=== PATIENT | female | born 1980 | race Caucasian/White ===

== ENCOUNTER 2024-07-19 16:01 | Emergency (ER) | payer BC, OTHER, SELFPAY ==
--- NOTE | ~2024-07-19 | XR_ITS ---
EXAMINATION: XR finger 1st LT min 2V DATE: 07/19/2024 16:38 INDICATION: Left thumb injury and pain. TECHNIQUE: 3 views of left thumb were obtained. COMPARISON: None. FINDINGS: Alignment is normal. No fracture. There is severe osteoarthritis of first carpometacarpal j oint and mild osteoarthritis of first metacarpophalangeal joint and first interphalangeal joint. IMPRESSION: 1. Polyarticular osteoarthritis. Reviewed, dictated and finalized at location A.
[2024-07-19 16:12] VITALS: BP 123/74; PULSE 88; RESP 18; TEMP 36.6; O2SAT 100
--- NOTE | 2024-07-19 16:41 | ED.UPPEXIN ---
HPI - Extremity Injury (Upper) General Chief Complaint: Extremity Injury, Upper Stated Complaint: left thumb/hand injury Source: patient Mode of arrival: ambulatory Limitations: no limitations History of Present Illness HPI narrative: 43-year-old female presented for complaint of left thumb pain after injury 2 days ago. She states she had the dog leash wrapped around the hand when she was pulled forward Rich tugged on the thumb. She currently reports some swelling to the palm area of the thumb, and pain with certain movements. Denies numbness, tingling, weakness, deformity or bruising. [id number]. Wearing a bandaid on the left thumb after cutting the thumb in a separate incident. Related Data Home Medications Medication Instructions Recorded Confirmed No Home Medications 07/19/24 07/19/24 Allergies Allergy/AdvReac Type Severity Reaction Status Date / Time levofloxacin [From Levaquin] AdvReac Other Verified 07/19/24 16:39 Review of Systems Review of Systems: CONSTITUTIONAL: Denies body aches, fever, chills CARDIOVASCULAR: Denies chest pain, palpitations, or edema. RESPIRATORY: Denies cough or dyspnea. SKIN: Denies rash, itching, or wounds. MUSCULOSKELETAL: Reports left thumb pain NEUROLOGIC: Denies headache, numbness, tingling, or weakness. All systems reviewed & are unremarkable except as noted in HPI and below PMFSH Past Medical History Medical History (Updated 07/19/24 @ 16:55 by Maris Montanez APRN) Abdominal hernia Anxiety Borderline personality disorder Dissociative identity disorder Surgical History Surgical History (Updated 07/19/24 @ 16:55 by Maris Montanez APRN) H/O gastric bypass H/O: hysterectomy Hx of cholecystectomy Comments At time of signature, I have reviewed and agree with nursing past medical, surgical, social and family history unless otherwise noted. Please see nursing chart for further information. There is no relevant family history pertinent to the presenting complaint Exam Narrative: GENERAL: Well-appearing CHEST: Speaks in full sentences. No respiratory distress. HEART: Regular rate and rhythm. Normal and equal peripheral pulses. EXTREMITIES: Left hand has normal strength and sensation, normal range of motion, but endorses pain with movement at thumb base. Tender with palpation to the palmar aspect of the left thumb.Mild swelling to palmar aspect of 1st metacarpal. no ecchymosis, No open wounds, or obvious deformity; alignment normal, pulse palpable and equal bilaterally, skin warm, dry, pink. Capillary refill less than 3 seconds. SKIN: Warm, dry NEURO: Alert and oriented x3. PSYCH: Normal mood and affect Course Course Emergency Course: Patient is aware of diagnosis, understands and agrees to treatment plan. Anticipatory guidance given. Patient agrees to follow-up as directed and is aware of reasons to seek care at the emergency department. Portions of this record may have been created with voice recognition software Level of Care: Express Care Visit Vital Signs Vital signs: Vital Signs Temperature 97.9 F 07/19/24 16:12 Pulse Rate 88 07/19/24 16:12 Respiratory Rate 18 07/19/24 16:12 Blood Pressure 123/74 07/19/24 16:12 Pulse Oximetry 100 07/19/24 16:12 Oxygen Delivery Room Air 07/19/24 16:12 Temperature 97.9 F 07/19/24 16:12 Pulse Rate 88 07/19/24 16:12 Respiratory Rate 18 07/19/24 16:12 Blood Pressure 123/74 07/19/24 16:12 Pulse Oximetry 100 07/19/24 16:12 Oxygen Delivery Room Air 07/19/24 16:12 Reviewed MDM - Extremity Injury (Upper) MDM Narrative Medical decision making narrative: Discussed physical exam findings and xray. Vin wrap applied. Advised supportive measures and signs/symptoms to go to the ER. Pt is appropriate for outpt treatment and f/u. Differential Diagnosis Differential diagnosis: Likely finger sprain, dislocation of finger and other (finger fracture) Imag
== END 2024-07-19 16:55 | disposition home or self-care (01) ==
PROVIDERS: Emergency Provider Nurse Practitioner Family
DX: M79.645 Pain in left finger(s) (principal); Z98.84 Bariatric surgery status
CPT/HCPCS: 73140; 99203; G0463

== ENCOUNTER 2025-06-28 18:52 | Emergency (ER) | payer OTHER, SELFPAY ==
--- NOTE | ~2025-06-28 | XR_ITS ---
Examination: XR wrist RT min 3V Clinical History: distal radial pain and swelling after fall backwards on arm Comparison: None Technique: 4 views right wrist Findings/impression: 1. No fracture or dislocation right wrist. 2. Mild radiocarpal joint space narrowing. 3. Mild degenerative changes of basal joint of thumb. Reviewed, dictated and finalized at location R.
[2025-06-28 18:59] VITALS: BP 123/89; PULSE 93; RESP 16; TEMP 36.6; O2SAT 100
--- NOTE | 2025-06-28 19:20 | ED.UPPEXIN ---
HPI - Extremity Injury (Upper) General Chief Complaint: Extremity Injury, Upper Stated Complaint: Right Arm/ Wrist Injury Time Seen by Provider: 06/28/25 19:05 Source: patient Mode of arrival: ambulatory Limitations: no limitations History of Present Illness HPI narrative: 44 yo F presents with pain to R wrist. Was climbing rocks near river and fell. Put down hands to catch herself. Did not hit head. Distal NV intact. All systems reviewed and negative except as noted above. Related Data Home Medications ?Medication ?Instructions ?Recorded ?Confirmed ?Last Taken ?Type No Home Medications 07/19/24 06/28/25 Unknown History Allergies Allergy/AdvReac Type Severity Reaction Status Date / Time levofloxacin (From Levaquin) AdvReac Other Verified 06/28/25 18:54 [facility] Past Medical History Medical History (Updated 06/28/25 @ 19:19 by Bisi Fraser, MANISHA) Abdominal hernia Dissociative identity disorder Borderline personality disorder Anxiety Surgical History Surgical History (Updated 07/19/24 @ 16:55 by Maris Montanez, SAMUEL) H/O: hysterectomy Hx of cholecystectomy H/O gastric bypass Comments At time of signature, agree with nursing past medical, surgical, social and family history. There is no relevant family history pertinent to the presenting complaint. Exam Narrative: GENERAL: This is a well-nourished, well-developed patient, in no apparent distress. HEAD: normocephalic, atraumatic. EYES: PERRL. Sclera clear/white. Vision is grossly intact. EARS: External ears normal NOSE: External nose normal NECK: Neck supple, non-tender without lymphadenopathy, masses or thyromegaly. CARDIOVASCULAR: Regular rate and rhythm without murmurs, gallops, or rubs. RESPIRATORY: Clear to auscultation. Breath sounds equal bilaterally. No wheezes, rales, or rhonchi. SKIN: warm, Dry, intact with no suspicious lesions or rash, good texture and turgor. NEURO: awake, alert, and oriented to person, place and time. There were no obvious focal neurologic abnormalities. EXTREMITIES: tender distal aspect radius and ulna. no deformity noted. mild swelling. difficult to assess ROM due to pain. Course Course Level of Care: Express Care Visit Vital Signs Vital signs: Vital Signs Temperature 36.6 C 06/28/25 18:59 Pulse Rate 93 06/28/25 18:59 Respiratory Rate 16 06/28/25 18:59 Blood Pressure 123/89 06/28/25 18:59 Pulse Oximetry 100 06/28/25 18:59 Oxygen Delivery Room Air 06/28/25 18:59 Temperature 36.6 C 06/28/25 18:59 Pulse Rate 93 06/28/25 18:59 Respiratory Rate 16 06/28/25 18:59 Blood Pressure 123/89 06/28/25 18:59 Pulse Oximetry 100 06/28/25 18:59 Oxygen Delivery Room Air 06/28/25 18:59 reviewed MDM - Extremity Injury (Upper) MDM Narrative Medical decision making narrative: x-ray of right wrist negative for fracture. placed in cecy wrap. pt requesting arm sling. recommend follow up wtih PCP if pain not improving. Differential Diagnosis Differential diagnosis: Likely sprain and strain of wrist and fracture of wrist Discharge Plan Discharge Clinical Impression: Right wrist sprain Qualifiers: Encounter type: initial encounter Wrist sprain location: unspecified location Qualified Code(s): S63.501A - Unspecified sprain of right wrist, initial encounter Patient Disposition: Home Condition: Stable Instructions: Wrist Sprain (ED) Additional Instructions: The x-ray of your right wrist was negative for fracture. Take ibuprofen or tylenol every 6 to 8 hours as needed for pain. Apply ice as needed for pain. Elevate when at rest. See your doctor if pain is not improving. Patient Language: Spanish Prescriptions: No Action No Home Medications Follow-up/Referrals: PHYSICIAN,OUTPATIENT SERVICES DIRECTOR [Primary Care Provider, Internal Medicine] Time of Disposition: 19:19
== END 2025-06-28 19:32 | disposition home or self-care (01) ==
PROVIDERS: Emergency Provider Nurse Practitioner Family
DX: S63.501A Unspecified sprain of right wrist, initial encounter (principal); W17.89XA Other fall from one level to another, initial encounter; Y93.31 Activity, mountain climbing, rock climbing and wall climbing; Z98.84 Bariatric surgery status
CPT/HCPCS: 73110; 99213; A4565; G0463